=== PATIENT | male | born 1970 | race Caucasian/White ===

== ENCOUNTER 2017-10-03 16:27 | Emergency (ER) | payer BC ==
[2017-10-03 16:53] VITALS: BP 144/104
--- NOTE | 2017-10-03 17:34 | UC ---
Hand/Wrist HPI - HPI Summary HPI Summary: Pt presents with right hand pain and swelling. He tells me that last night he was working on his truck and dropped a tool that hit his right hand. Today had some increased pain and swelling. Took tylenol with good relief. He is currently icing his hand. Denies numbness, tingling, or previous issues with hand. - History Of Current Complaint Chief Complaint: UCUpperExtremity Stated Complaint: HAND INJURY Time Seen by Provider: 10/03/17 17:33 Hx Obtained From: Patient Onset/Duration: Sudden Onset Severity Initially: Moderate Severity Currently: Moderate Pain Intensity: 6 Pain Scale Used: 0-10 Numeric Character Of Pain: Dull, Aching, Throbbing Aggravating Factor(s): Movement Alleviating Factor(s): Ice, OTC Meds Associated Signs And Symptoms: Positive: Swelling - Allergies/Home Medications Allergies/Adverse Reactions: Allergies Allergy/AdvReac Type Severity Reaction Status Date / Time No Known Allergies Allergy Verified 10/03/17 16:53 Home Medications: Home Medications NK [No Home Medications Reported] 10/03/17 [History Confirmed 10/03/17] PMH/Surg Hx/FS Hx/Imm Hx Previously Healthy: Yes - Surgical History Surgical History: Yes Surgery Procedure, Year, and Place: RIGHT ANKLE - Family History Known Family History: Positive: Unknown - Social History Occupation: Employed Full-time Lives: With Family Alcohol Use: Rare Substance Use Type: None Smoking Status (MU): Light Every Day Tobacco Smoker Review of Systems Constitutional: Negative Skin: Negative Respiratory: Negative Cardiovascular: Negative Gastrointestinal: Negative Neurovascular: Negative Musculoskeletal: Other: - Right hand pain Neurological: Negative Psychological: Negative All Other Systems Reviewed And Are Negative: Yes Physical Exam Triage Information Reviewed: Yes Appearance: Well-Appearing, No Pain Distress, Well-Nourished Vital Signs: Initial Vital Signs Temp 99 F 10/03/17 16:49 Pulse 79 10/03/17 16:49 Resp 16 10/03/17 16:49 BP 144/104 10/03/17 16:49 Pulse Ox 98 10/03/17 16:49 Vital Signs Reviewed: Yes Neck: Positive: Supple, Nontender Respiratory: Positive: Lungs clear, Normal breath sounds, No respiratory distress Cardiovascular: Positive: RRR, No Murmur, Pulses Normal - Right radial and ulnar , Brisk Capillary Refill - Right hand and all fingers Musculoskeletal: Positive: Strength Intact - Right wrist and all fingers, ROM Intact - Right wrist and all fingers, Edema @ - Mild at dorsal aspect of right 3rd MCP, Other: - Mild TTP over right dorsal 3rd MCP. No wrist tenderness. No snuffbox tenderness. Neurological: Positive: Alert, Other: - Sensations intact right hand and all fingers Psychological: Positive: Age Appropriate Behavior Skin: Negative: rashes, significant lesion(s) Hand/Wrist Course/Dx - Course Course Of Treatment: XR: IMPRESSION: No fracture of the right hand is noted. Advised to Rest, Ice, and elevate his hand. May take tylenol for pain as needed. - Differential Dx/Diagnosis Provider Diagnoses: Right hand contusion Discharge - Discharge Plan Condition: Stable Disposition: HOME Patient Education Materials: Contusion in Adults (ED) Referrals: No Primary Care Phys,NOPCP [Primary Care Provider] - Additional Instructions: If you develop a fever, shortness of breath, chest pain, new or worsening symptoms - please call your PCP or go to the ED. Your blood pressure was high at todays visit. Please see your primary provider within 4 weeks for recheck and re-evaluation. 1) Rest, Ice, and Elevate your hand as much as possible over the next 24-48 hours 2) May take tylenol or ibuprofen as needed for pain and swelling
--- NOTE | 2017-10-03 17:45 | RAD ---
Indication: Right hand injury. 4 views of the right hand demonstrates no fracture. No other bone or joint abnormality is noted. IMPRESSION: No fracture of the right hand is noted.
== END 2017-10-03 18:05 | disposition home or self-care (01) ==
LOC: UCEAST 16:27
DX: S60.221A Contusion of right hand, initial encounter (principal); W20.8XXA Other cause of strike by thrown, projected or falling object, initial encounter; Y93.89 Activity, other specified; Y92.9 Unspecified place or not applicable; F17.200 Nicotine dependence, unspecified, uncomplicated
CPT/HCPCS: 99201; G0463

== ENCOUNTER 2019-07-08 09:15 | Emergency (ER) | payer BC ==
[2019-07-08 09:24] VITALS: BP 170/117
--- NOTE | 2019-07-08 10:11 | UC ---
Bite Injury/Animal HPI - HPI Summary HPI Summary: 49-year-old male comes in with a chief complaint of tick bite to the right side of his chest. He found it to days ago and removed it with fair tweezers. Is not sure if he got the whole tick. Not sure how long it was in there he thinks it was just 24 hours. Today there is a 1 cm area of erythema surrounding the tick bite area. The fevers or chills feels well otherwise. - History of Current Complaint Chief Complaint: UCGeneralIllness Stated Complaint: TICK Time Seen by Provider: 07/08/19 10:00 Pain Intensity: 0 - Allergies/Home Medications Allergies/Adverse Reactions: Allergies Allergy/AdvReac Type Severity Reaction Status Date / Time No Known Allergies Allergy Verified 07/08/19 09:19 PMH/Surg Hx/FS Hx/Imm Hx Previously Healthy: Yes - Surgical History Surgical History: Yes Surgery Procedure, Year, and Place: RIGHT ANKLE 2006 - Family History Known Family History: Positive: Unknown - Social History Alcohol Use: None Substance Use Type: None Smoking Status (MU): Light Every Day Tobacco Smoker Type: Cigars Amount Used/How Often: 2-3 cigars/ day Household Exposure Type: Cigars Review of Systems All Other Systems Reviewed And Are Negative: Yes Constitutional: Positive: Negative Skin: Positive: Other - SEE HPI Eyes: Positive: Negative ENT: Positive: Negative Respiratory: Positive: Negative Cardiovascular: Positive: Negative Gastrointestinal: Positive: Negative Motor: Positive: Negative Neurovascular: Positive: Negative Musculoskeletal: Positive: Negative Neurological: Positive: Negative Psychological: Positive: Negative Is Patient Immunocompromised?: No Physical Exam Triage Information Reviewed: Yes Appearance: Well-Appearing, No Pain Distress, Well-Nourished Vital Signs: Initial Vital Signs Temp 98.4 F 07/08/19 09:19 Pulse 84 07/08/19 09:19 Resp 20 07/08/19 09:19 BP 170/117 07/08/19 09:19 Pulse Ox 99 07/08/19 09:19 Vital Signs Reviewed: Yes Eye Exam: Normal Eyes: Positive: Conjunctiva Clear Neck: Positive: Supple Respiratory: Positive: No respiratory distress Musculoskeletal: Positive: Strength Intact, ROM Intact Neurological: Positive: Alert, Muscle Tone Normal Psychological: Positive: Age Appropriate Behavior Skin: Positive: Other - Number right side of the chest there is a 1 cm diameter area of erythema. There is a 1 mm dark brown area which may be tick mouth parts that are sunken into the skin. No bull's-eye rash no streaking no drainage. Bite Injury Course/Dx - Course Course Of Treatment: The area of the rash is erythematous where there is most probably some mouth parts of the tick. No bull's-eye rash at this time no symptoms of Lyme disease therefore we will treat with doxycycline 200 mg by mouth single dose. Patient' s to get reevaluated if any signs of Lyme disease. - Differential Dx/Diagnosis Provider Diagnosis: Tick bite of chest wall Discharge ED - Sign-Out/Discharge Documenting (check all that apply): Patient Departure All imaging exams completed and their final reports reviewed: No Studies - Discharge Plan Condition: Stable Disposition: HOME Prescriptions: DOXYcycline CAP(*) [DOXYcycline 100MG CAP(*)] 200 mg PO ONCE #2 cap Patient Education Materials: Tick Bite (ED) Referrals: [facility] [place] [facility] [Outside] Additional Instructions: FOLLOW UP WITH YOUR DOCTOR IF NOT COMPLETELY IMPROVED. GET REEVALUATED SOONER IF NOT IMPROVED OR WORSE; BULLS EYE RASH, SYMPTOMS OF LYME DISEASE OR ANY QUESTIONS OR CONCERNS. - Billing Disposition and Condition Condition: STABLE Disposition: Home
== END 2019-07-08 10:18 | disposition home or self-care (01) ==
LOC: UCEAST 09:15
DX: S20.361A Insect bite (nonvenomous) of right front wall of thorax, initial encounter (principal); F17.290 Nicotine dependence, other tobacco product, uncomplicated; W57.XXXA Bitten or stung by nonvenomous insect and other nonvenomous arthropods, initial encounter; Y92.9 Unspecified place or not applicable
CPT/HCPCS: 99212; G0463